=== PATIENT | female | born 1975 | race Caucasian/White ===

== ENCOUNTER 2020-06-20 16:46 | Emergency (ER) | payer BC, OTHER ==
[~2020-06-20] VITALS: Ht 157 cm; Wt 53.0 kg
[2020-06-20] MEDS ORDERED: fentaNYL INJECTION 100 MCG/2 ML AMP IVP ONE ×2 (17:45→19:00)
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
[2020-06-20] MEDS ORDERED: NS IV 500 ML 500 ML IV ONE (17:51)
[2020-06-20 18:01] LABS: BASOPHILS % (AUTO) 0 % (0-10); EOSINOPHILS % (AUTO) 0 % (0-10); HEMOGLOBIN 12.9 g/dL (11.5-16.0)
[2020-06-20 18:03] LABS: HEMATOCRIT 38 % (35-52); LYMPHOCYTES # (AUTO) 0.7 10^3/uL (1.0-4.0); LYMPHOCYTES % (AUTO) 15 % (12-44); MEAN CORPUSCULAR HEMOGLOBIN 32 pg (25-34); MEAN CORPUSCULAR HGB CONC 34 g/dL (32-36); MEAN CORPUSCULAR VOLUME 92 fL (80-99); MEAN PLATELET VOLUME 11.6 fL (9.0-12.2); MONOCYTES # (AUTO) 0.2 10^3/uL (0.0-1.0); MONOCYTES % (AUTO) 5 % (0-12); NEUTROPHILS % (AUTO) 80 % (42-75); PLATELET COUNT 210 10^3/uL (130-400)
--- NOTE | 2020-06-20 18:43 | Diagnostic Imaging Report ---
4 views of the right shoulder. FINDINGS: Per report, the patient is not able to obtain appropriate positioning for the lateral view. Elbow alignment assessment therefore is limited. AP alignment of the elbow appears appropriate. There is no identified fracture. Assessment of a joint effusion on the lateral views cannot be performed. IMPRESSION: Limited assessment of the right elbow given patient positioning and inability to perform an appropriate lateral view. This limits assessment for alignment, limits assessment of the radial head and limits assessment for evaluation of joint effusion. AP alignment is unremarkable. There is no definitively demonstrated fracture. Given the limitations of this examination, if continued symptomatology, CT through the elbow may need to be considered for assessment. Dictated by: Dictated on workstation # [id number]
--- NOTE | 2020-06-20 18:46 | Diagnostic Imaging Report ---
INDICATION: Right shoulder pain 3 views of the right shoulder show fracture of the greater tuberosity of the proximal humerus. This appears be nondisplaced. IMPRESSION: Fracture of the greater tuberosity and possibly left tuberosity of the proximal right humerus. Dictated by: Dictated on workstation # [id number]
--- NOTE | 2020-06-20 18:46 | Diagnostic Imaging Report ---
PROCEDURE: CT right upper extremity without contrast. TECHNIQUE: Multiple contiguous axial images were obtained through the right upper extremity without the use of intravenous contrast. Sagittal and coronal reformations were then performed. Auto Exposure Controls were utilized during the CT exam to meet ALARA standards for radiation dose reduction. INDICATION: Right shoulder injury There are fractures of the lesser and greater tuberosities of the proximal right humerus. The greater tuberosity is minimally by 4 mm anteriorly. The clavicle appears to be intact. AC joint is intact. Glenohumeral joint is in normal alignment. Scapula is intact. IMPRESSION: Comminuted fractures of proximal humerus involving the greater and lesser tuberosities. Dictated by: Dictated on workstation # [id number]
--- NOTE | 2020-06-20 18:51 | Diagnostic Imaging Report ---
PROCEDURE: CT neck soft tissue with contrast. TECHNIQUE: Multiple contiguous axial images were obtained through the neck after the administration of contrast. Auto Exposure Controls were utilized during the CT exam to meet ALARA standards for radiation dose reduction. INDICATION: Neck injury Vertebral body height and alignment are normal. Intervertebral disc spaces well-maintained. Posterior elements are intact. There is no prevertebral soft tissue swelling. Epiglottis is normal. Larynx appears normal. Neurovascular bundles are normal. Parapharyngeal fat planes are well-maintained. There is no prevertebral soft tissue swelling or pharyngeal mucosal thickening. IMPRESSION: Negative CT neck. Dictated by: Dictated on workstation # [id number]
[2020-06-20] MEDS ORDERED: HYDR-34 PO (19:13)
[2020-06-20 19:36] LABS: CHLORIDE 106 MMOL/L (98-107); POTASSIUM 3.5 MMOL/L (3.6-5.0); SODIUM 140 MMOL/L (135-145)
[2020-06-20 19:37] LABS: CALCIUM 9.3 MG/DL (8.5-10.1)
[2020-06-20 19:38] LABS: GLUCOSE 103 MG/DL (70-105)
[2020-06-20 19:39] LABS: CARBON DIOXIDE 22 MMOL/L (21-32)
[2020-06-20 19:42] LABS: BUN/CREATININE RATIO 6; CREATININE SERUM 0.82 MG/DL (0.60-1.30); GFR ESTIMATED > 60
[2020-06-20 19:49] VITALS: BP 112/47
[2020-06-20] MEDS ORDERED: HOLD METFORMIN - RECEIVED CONTRAST 20 ML VIAL IV SCH (20:00)
[2020-06-20] MEDS ORDERED: IOHEXOL 350 MG/ML 100 ML (OMNIPAQUE 350) VIAL IV ONE (20:00)
[2020-06-20] MEDS ORDERED: NS 100 ML (IVPB) BAG IV ONE (20:00)
== END 2020-06-20 19:54 | disposition home or self-care (01) ==
LOC: ER 16:48
DX: S42.291A Other displaced fracture of upper end of right humerus, initial encounter for closed fracture (principal); Z88.8 Allergy status to other drugs, medicaments and biological substances; X58.XXXA Exposure to other specified factors, initial encounter
CPT/HCPCS: 36415; 70491; 73030; 73080; 73200; 80048; 85025

== ENCOUNTER 2022-05-07 12:40 | Emergency (ER) | payer SELFPAY ==
[~2022-05-07] VITALS: Ht 157.5 cm; Wt 59.0 kg
[~2022-05-07 12:40] MED LIST: HYDR-34 PO
[2022-05-07] MEDS ORDERED: FAMOTIDINE 20MG/2ML IV (PEPCID) IV STA (13:06)
--- NOTE | 2022-05-07 13:14 | ED Chest Pain ---
General Stated Complaint: CHEST PAIN - DIZZY Source: patient Exam Limitations: no limitations History of Present Illness Date Seen by Provider: May 07, 2022 Time Seen by Provider: 12:53 Initial Comments Patient to the ER by private conveyance chief complaint that this chest pain started yesterday and she has nausea vomiting malaise and epigastric abdominal discomfort as well as some on her right upper quadrant. She last ate chicken and dumplings last night when her pain started. She denies anything to eat since then. She says she has had multiple vomiting episodes today. She was at work when this happened again and decided to come into the ER to be checked out. She is having burning pain in her chest, substernal nonradiating. No history of heart disease. She is also having diarrhea for the past day. Patient had her hysterectomy at age 28 or 29 with ovaries included because of endometritis and some kind of pelvic prolapse syndrome. History of endometriosis. She is also had tubal ligation but no gallbladder Allergies and Home Medications Allergies Coded Allergies: aspirin (Verified Allergy, Unknown, 06/20/20) Patient Home Medication List Home Medication List Reviewed: Yes Hydrocodone Bit/Acetaminophen (HYDROcodone/APAP 7.5/325 TAB) 1 Ea Tablet, 1 EA PO Q4-6 PRN for PAIN Prescribed by: ROBYN HART on 06/20/201912 Review of Systems Review of Systems Constitutional: No chills, No diaphoresis EENTM: No Blurred Vision, No Double Vision Respiratory: Denies Cough, Denies Shortness of Air Cardiovascular: Chest Pain; Denies Lightheadedness Gastrointestinal: Denies Constipated; Diarrhea, Nausea, Vomiting Genitourinary: Denies Burning, Denies Discharge Musculoskeletal: No back pain, No joint pain All Other Systems Reviewed Negative Unless Noted: Yes Past Yfcrwbj-Pwlpqm-Qjtwbj Hx Patient Social History Tobacco Use?: No Use of E-Cig and/or Vaping dev: No Past Medical History Surgeries: No Respiratory: No Cardiac: No Neurological: No Genitourinary: No Gastrointestinal: No Musculoskeletal: No Endocrine: No HEENT: No Cancer: No Psychosocial: No Integumentary: No Blood Disorders: No Physical Exam Vital Signs Vital Signs - First Documented 05/07/22 13:25 Temp 36.9 Pulse 93 Resp 13 B/P (MAP) 131/102 (112) Pulse Ox 96 O2 Delivery Room Air Capillary Refill : Height, Weight, BMI Height: '" Weight: lbs. oz. kg; 21.00 BMI Method: General Appearance: WD/WN, Mild Distress HEENT: PERRL/EOMI, Pharynx Normal; No Moist Mucous Membranes Neck: Full Range of Motion, Normal Inspection Respiratory: Chest Non Tender, Lungs Clear, Normal Breath Sounds, No Accessory Muscle Use, No Respiratory Distress Cardiovascular: Regular Rate, Rhythm, No Edema, Normal Peripheral Pulses Gastrointestinal: Normal Bowel Sounds, No Organomegaly, Non Tender, Soft Extremity: Normal Capillary Refill, Normal Inspection, Normal Range of Motion, No Pedal Edema Neurologic/Psychiatric: Alert, Oriented x3, No Motor/Sensory Deficits Skin: Normal Color, Warm/Dry Progress/Results/Core Measures Results/Orders Lab Results Laboratory Tests Test 05/07/22 13:30 05/07/22 13:58 Range/Units White Blood Count 4.3 4.3-11.0 10^3/uL Red Blood Count 4.14 3.80-5.11 10^6/uL Hemoglobin 12.8 11.5-16.0 g/dL Hematocrit 38 35-52 % Mean Corpuscular Volume 91 80-99 fL Mean Corpuscular Hemoglobin 31 25-34 pg Mean Corpuscular Hemoglobin Concent 34 32-36 g/dL Red Cell Distribution Width 12.6 10.0-14.5 % Platelet Count 211 130-400 10^3/uL Mean Platelet Volume 10.7 9.0-12.2 fL Immature Granulocyte % (Auto) 0 % Neutrophils (%) (Auto) 71 42-75 % Lymphocytes (%) (Auto) 22 12-44 % Monocytes (%) (Auto) 7 0-12 % Eosinophils (%) (Auto) 0 0-10 % Basophils (%) (Auto) 0 0-10 % Neutrophils # (Auto) 3.0 1.8-7.8 10^3/uL Lymphocytes # (Auto) 0.9 L 1.0-4.0 10^3/uL Monocytes # (Auto) 0.3 0.0-1.0 10^3/uL Eosinophils # (Auto) 0.0 0.0-0.3 10^3/uL Basophils # (Auto) 0.0 0.0-0.1 10^3/uL Immature Granulocyte # (Auto) 0.0 0.0-0.1 10^3/uL Sodium Level 145 135-145 MMOL/L Potassium Level 4.0 3.6-5.0 MMOL/L Chloride Level 105 98-107 MMOL/L Carbon Dioxide Level 29 21-32 MMOL/L Anion Gap 11 5-14 MMOL/L Blood Urea Nitrogen 8 7-18 MG/DL Creatinine 0.84 0.60-1.30 MG/DL Estimat Glomerular Filtration Rate 87 BUN/Creatinine Ratio 10 Glucose Level 105 70-105 MG/DL Calcium Level 9.9 8.5-10.1 MG/DL Corrected Calcium 8.5-10.1 MG/DL Total Bilirubin 0.2 0.1-1.0 MG/DL Aspartate Amino Transf (AST/SGOT) 19 5-34 U/L Alanine Aminotransferase (ALT/SGPT) 17 0-55 U/L Alkaline Phosphatase 69 40-136 U/L Troponin I < 0.028 <0.028 NG/ML C-Reactive Protein High Sensitivity 0.03 0.00-0.50 MG/DL Total Protein 7.4 6.4-8.2 GM/DL Albumin 4.7 H 3.2-4.5 GM/DL Lipase 28 8-78 U/L Influenza Type A (RT-PCR) Not Detected Not Detecte Influenza Type B (RT-PCR) Not Detected Not Detecte SARS-CoV-2 RNA (RT-PCR) Not Detected Not Detecte My Orders Orders - ARTHUR VEMRA Ed Iv/Invasive Line Start (05/07/22 13:06) Lactated Ringers (Lr 1000 Ml Iv Solution (05/07/22 13:15) Ondansetron Injection (Zofran Injectio (05/07/22 13:15) Lidocaine 2% Viscous 15 Ml (Xylocaine Vi (05/07/22 13:15) Antacid Suspension (Mylanta Suspension (05/07/22 13:15) Famotidine Injection (Pepcid Injection) (05/07/22 13:06) Cbc With Automated Diff (05/07/22 13:06) Comprehensive Metabolic Panel (05/07/22 13:06) Hs C Reactive Protein (05/07/22 13:06) Lipase (05/07/22 13:06) Covid 19 Inhouse Test (05/07/22 13:06) Influenza A And B By Pcr (05/07/22 13:06) Troponin I Sanjay (05/07/22 13:06) Chest 1 View, Ap/Pa Only (05/07/22 13:06) Medications Given in ED Current Medications Medications Dose Ordered Sig/Dannielle Route Start Time Stop Time Status Last Admin Dose Admin Al Hydrox/Mg Hydrox/Simethicone 30 ml ONCE ONCE PO 05/07/22 13:15 05/07/22 13:16 DC 05/07/22 13:37 30 ML Lactated Ringer's 1,000 ml @ 0 mls/hr Q0M ONCE IV 05/07/22 13:15 05/07/22 13:16 DC 05/07/22 13:37 0 MLS/HR Lidocaine HCl 15 ml ONCE ONCE PO 05/07/22 13:15 05/07/22 13:16 DC 05/07/22 13:37 15 ML Ondansetron HCl 8 mg ONCE ONCE IVP 05/07/22 13:15 05/07/22 13:16 DC 05/07/22 13:37 8 MG Vital Signs/I&O 05/07/22 13:25 Temp 36.9 Pulse 93 Resp 13 B/P (MAP) 131/102 (112) Pulse Ox 96 O2 Delivery Room Air Progress Progress Note #1: Time: 13:12 Progress Note The patient has nausea vomiting diarrhea that led to chest pain after her copious episodes of vomiting this morning. Suspect she has a gastroenteritis likely viral. We will go ahead and get a troponin, EKG and chest x-ray. She has an allergy to aspirin so we will not give her anything like that. We will give her a GI cocktail, Pepcid and Zofran. We will give her a liter of fluids for her perceived dehydration. If her CRP and white count are okay then we will not do a CT and just give her conservative management techniques. Progress Note #2: Time: 14:41 Progress Note Patient has had a good recovery of her nausea still having a little nausea so we will give her some Phenergan p.o. and let her go home. Her son is cannot drive her home. She will be provided with some ondansetron for home. Return precautions been given. A work note has been provided. She has no pain whatsoever after the GI cocktail. Suspect she had esophagitis related to emesis. Initial ECG Impression Date: May 07, 2022 Initial ECG Impression Time: 12:59 Initial ECG Rate: 89 Initial ECG Rhythm: Normal Sinus Initial ECG Intervals: Normal Initial ECG Impression: Normal Comment Normal sinus rhythm without clinically relevant ST elevation or depression Diagnostic Imaging Diagonstic Imaging: Xray Plain Films/CT/US/NM/MRI: chest Comments [facility] [place], [place] NAME: LORRAINE JACOME [facility] REC#: [id number] PT STATUS: REG ER : 1975 PHYSICIAN: ARTHUR VERMA MD ADMIT DATE: 05/07/22/ER Draft Date of Exam:05/07/22 CHEST 1 VIEW, AP/PA ONLY INDICATION: Chest pain. COMPARISON: None. FINDINGS: Single frontal view of the chest demonstrates normal heart size and pulmonary vascularity. The lungs are well aerated and clear. No large pleural effusion or pneumothorax is seen. The visualized osseous structures show no acute abnormalities. IMPRESSION: 1. No acute cardiopulmonary process. Dictated on workstation # [id number] Dict: 05/07/22 1344 Trans: 05/07/22 1348 [id number] [id number] Interpreted by: ARLETH WOODS MD Electronically signed by: Reviewed: Reviewed by Me Transfer of Care Time: 14:30 Care transferred to: Dr. Bryan Departure Impression Primary Impression: Gastroenteritis and colitis, viral Disposition: 01 HOME, SELF-CARE Condition: Improved Departure-Patient Inst. Decision time for Depature: 14:46 Referrals: NO,LOCAL PHYSICIAN (PCP/Family) Primary Care Physician Patient Instructions: Viral Gastroenteritis, Adult (DC) Add. Discharge Instructions: Drink lots of fluids. Sports drinks are encouraged. Symptoms usually resolve in 3 to 5 days at the most. If your diarrhea persist longer than 10 days then follow-up with your primary care doctor to have a stool lab test performed. Stick to a simple diet of bananas, rice, applesauce, toast or other similar bland, nonspicy foods until your diarrhea improves. If you continue to have diarrhea then take 2 tablets of loperamide/Imodium 4 mg. If you still have diarrhea after that then 1 more tablet every 4 hours until it stops. Ondansetron 1 tablet every 6 hours as needed for nausea and/or vomiting. If you are still having nausea or vomiting 30 to 60 minutes after taking the first tablet you may take a second tablet. Return to the ER for significantly worsening pain, dehydration or other worrisome symptoms. Scripts Ondansetron (Ondansetron Odt) 4 Mg Tab.rapdis 4-8 MG PO Q6H PRN for NAUSEA/VOMITING, #12 TAB 0 Refills Prov: ARTHUR VERMA 05/07/22 Work/School Note: Work Release Form Date Seen in the Emergency Department: May 07, 2022 Return to Work: May 12, 2022 Restrictions: No Restrictions Other Restrictions Listed Below: May return sooner if symptom-free. ARTHUR VERMA May 07, 2022 13:14
[2022-05-07] MEDS ORDERED: ONDANSETRON 4 MG/2 ML (SDV) Z0FRAN IVP ONE (13:15)
[2022-05-07] MEDS ORDERED: ANTACID SUSP 30 ML UDC (MYLANTA) PO ONE (13:15)
[2022-05-07] MEDS ORDERED: LACTATED RINGERS 1,000 ML IV ONE (13:15)
[2022-05-07] MEDS ORDERED: LIDOCAINE 2% VISCOUS 15 ML UDC PO ONE (13:15)
--- NOTE | 2022-05-07 13:48 | Diagnostic Imaging Report ---
INDICATION: Chest pain. COMPARISON: None. FINDINGS: Single frontal view of the chest demonstrates normal heart size and pulmonary vascularity. The lungs are well aerated and clear. No large pleural effusion or pneumothorax is seen. The visualized osseous structures show no acute abnormalities. IMPRESSION: 1. No acute cardiopulmonary process. Dictated by: Dictated on workstation # [id number]
[2022-05-07 13:58] LABS: BASOPHILS % (AUTO) 0 % (0-10); EOSINOPHILS % (AUTO) 0 % (0-10); HEMATOCRIT 38 % (35-52); HEMOGLOBIN 12.8 g/dL (11.5-16.0); LYMPHOCYTES # (AUTO) 0.9 10^3/uL (1.0-4.0); LYMPHOCYTES % (AUTO) 22 % (12-44); MEAN CORPUSCULAR HEMOGLOBIN 31 pg (25-34); MEAN CORPUSCULAR HGB CONC 34 g/dL (32-36); MEAN CORPUSCULAR VOLUME 91 fL (80-99); MEAN PLATELET VOLUME 10.7 fL (9.0-12.2); MONOCYTES # (AUTO) 0.3 10^3/uL (0.0-1.0); MONOCYTES % (AUTO) 7 % (0-12); NEUTROPHILS % (AUTO) 71 % (42-75); PLATELET COUNT 211 10^3/uL (130-400); WHITE BLOOD COUNT 4.3 10^3/uL (4.3-11.0)
[2022-05-07 14:02] LABS: ALBUMIN 4.7 GM/DL (3.2-4.5)
[2022-05-07 14:03] LABS: CHLORIDE 105 MMOL/L (98-107); SODIUM 145 MMOL/L (135-145)
[2022-05-07 14:04] LABS: CALCIUM 9.9 MG/DL (8.5-10.1)
[2022-05-07 14:05] LABS: GLUCOSE 105 MG/DL (70-105); TOTAL PROTEIN 7.4 GM/DL (6.4-8.2)
[2022-05-07 14:06] LABS: CARBON DIOXIDE 29 MMOL/L (21-32)
[2022-05-07 14:07] LABS: BILIRUBIN,TOTAL 0.2 MG/DL (0.1-1.0)
[2022-05-07 14:08] LABS: ALKALINE PHOSPHATASE 69 U/L (40-136)
[2022-05-07 14:09] LABS: CREATININE SERUM 0.84 MG/DL (0.60-1.30); GFR ESTIMATED 87
[2022-05-07 14:10] LABS: BUN/CREATININE RATIO 10
[2022-05-07 14:12] LABS: ALANINE AMINOTRANSFERASE 17 U/L (0-55); LIPASE 28 U/L (8-78)
[2022-05-07] MEDS ORDERED: ONDA4TAB11 PO (14:49)
[2022-05-07 14:59] VITALS: BP 121/79
== END 2022-05-07 14:55 | disposition home or self-care (01) ==
LOC: EDUNIT# 12:40 → ER 12:42
DX: A08.4 Viral intestinal infection, unspecified (principal); Z20.822 Contact with and (suspected) exposure to COVID-19; Z28.310 Unvaccinated for COVID-19
CPT/HCPCS: 36415; 71045; 80053; 83690; 84484; 85025; 86141; 87636; 93005